=== PATIENT | male | born 1980 | race Caucasian/White ===

== ENCOUNTER 2020-02-09 16:37 | Inpatient (IN) | payer MEDICARE, MEDICAID ==
[~2020-02-09] VITALS: Ht 213.4 cm; Wt 74.8 kg
[~2020-02-09 16:37] MED LIST: CELEXA40 MG; DICLOFENAC SOD50 M1 PO; FENTANYL PA50 MCG/HR TP; GABAPENTIN 100100 MG PO; HCTZ; IBUPROFEN 800800 M1; NEURONTIN600 MG PO; NORCO 5-325 TA1 EACH PO; NORVASC10 MG PO; PENICILLIN V P500 MG PO; PRILOSEC 10MG C10 M1; PRILOSEC 20 MG20 MG PO; SEROQUEL 50 MG50 M1 PO; SEROQUEL XR 30300 M1 PO; SEROQUEL200 MG; XANAX XR1 MG; ZOFRAN4 MG PO; [UNRECOGNIZED DRUG - OTHER]
[2020-02-09 16:43] VITALS: BP 131/111
[2020-02-09] MEDS ORDERED: DILAUDID1 MG/1 M1 PO (16:49)
[2020-02-09] MEDS ORDERED: CREON DR 36,001 EACH PO (16:50)
[2020-02-09] MEDS ORDERED: PRILOSEC OTC20 MG PO (16:50)
[2020-02-09 17:03] LABS: ABSOLUTE BASOPHILS 0.1 thou/uL (0.0-0.2); ABSOLUTE EOSINOPHILS 0.1 thou/uL (0.0-0.7); ABSOLUTE LYMPHOCYTES 3.2 thou/uL (0.8-5.3); ABSOLUTE MONOCYTES 0.6 thou/uL (0.0-1.2); ABSOLUTE NEUTROPHILS 6.3 thou/uL (1.6-8.1); BASOPHILS 0.8 %; EOSINOPHILS 1.4 %; HEMATOCRIT 46.2 % (42.0-52.0); HEMOGLOBIN 15.9 gm/dL (14.0-18.0); LYMPHOCYTES 30.9 %; MCHC 34.4 g/dL (28.0-37.0); MONOCYTES 6.1 %; MPV 6.5 fl. (7.2-11.1); NUCLEATED RBCS 0 /100WBC; PLATELET COUNT* 414 thou/uL (150-400); POLYS 60.8 %; RBC 5.13 mil/uL (4.50-6.00); RDW-CV 15.7 % (10.5-14.5); WBC 10.4 thou/uL (4.0-11.0)
[2020-02-09 17:12] LABS: CALCIUM 8.8 mg/dL (8.5-10.1); CREATININE 0.9 mg/dL (0.6-1.3); POTASSIUM 3.6 mmol/L (3.5-5.1)
[2020-02-09 17:17] LABS: ALBUMIN 3.5 g/dL (3.4-5.0); TOTAL BILIRUBIN 0.2 mg/dL (<0.1-1.0); TOTAL PROTEIN 8.7 g/dL (6.4-8.2)
[2020-02-09 18:07] LABS: % SATURATION 18 % (20-39); IRON 83 ug/dL (50-175)
[2020-02-09 21:10] VITALS: BP 146/105
[2020-02-09 21:22] VITALS: BP 143/102
[2020-02-09] MEDS ORDERED: DILAUDID 4 MG TA4 M1 PO (22:22)
[2020-02-10 07:25] VITALS: BP 116/75
[2020-02-10 16:00] VITALS: BP 129/97
[2020-02-10 19:52] VITALS: BP 126/89
[2020-02-11 05:14] LABS: HEMATOCRIT 38.1 % (42.0-52.0); MCH 30.8 pg (26.0-34.0); MCHC 33.9 g/dL (28.0-37.0); MCV 90.7 fL (80.0-100.0); MPV 6.5 fl. (7.2-11.1); RBC 4.2 mil/uL (4.50-6.00); RDW-CV 15.6 % (10.5-14.5); WBC 6.7 thou/uL (4.0-11.0)
[2020-02-11 05:17] LABS: HEMOGLOBIN 12.9 gm/dL (14.0-18.0)
[2020-02-11 05:25] LABS: CALCIUM 7.9 mg/dL (8.5-10.1); CREATININE 0.8 mg/dL (0.6-1.3); POTASSIUM 3.4 mmol/L (3.5-5.1)
[2020-02-11 05:27] LABS: URINE BILIRUBIN NEGATIVE (Negative); URINE BLOOD NEGATIVE (Negative); URINE CLARITY CLEAR; URINE COLOR YELLOW; URINE GLUCOSE-RANDOM NEGATIVE (Negative); URINE KETONES TRACE (Negative); URINE LEUKOCYTES-REFLEX NEGATIVE (Negative); URINE NITRITE-REFLEX NEGATIVE (Negative); URINE PROTEIN NEGATIVE (Negative); URINE UROBILINOGEN 0.2 E.U./dl (0.2-1.0)
[2020-02-11 05:53] LABS: AMP/METHAMP Negative (Negative); BARBITURATES Negative (Negative); BENZODIAZEPINES Negative (Negative); COCAINE Negative (Negative); METHADONE Negative (Negative); OPIATES POSITIVE (Negative); PCP Negative (Negative); THC POSITIVE (Negative)
[2020-02-11 07:10] VITALS: BP 125/89
[2020-02-11 09:23] VITALS: BP 125/89
[2020-02-11 14:15] VITALS: BP 125/89
== END 2020-02-11 14:16 | disposition home or self-care (01) | DRG 344 ==
LOC: M.ERS 16:37 → M.ORTHSURG 18:33 → M.TBA-ER 18:33 → M.ORTHSURG 21:03
PROVIDERS: Physician Assistant; Surgery; ADMIT Family Medicine; ATTEND Family Medicine
PROC: 0DWD3UZ Revision of Feeding Device in Lower Intestinal Tract, Percutaneous Approach (ICD-10-PCS; principal; 2020-02-10)
DX: K94.13 Enterostomy malfunction (principal); K85.90 Acute pancreatitis without necrosis or infection, unspecified; F11.20 Opioid dependence, uncomplicated; K86.2 Cyst of pancreas; K56.7 Ileus, unspecified; K86.1 Other chronic pancreatitis; F32.9 Major depressive disorder, single episode, unspecified; M19.90 Unspecified osteoarthritis, unspecified site; F41.9 Anxiety disorder, unspecified; M40.30 Flatback syndrome, site unspecified; K59.00 Constipation, unspecified; D47.3 Essential (hemorrhagic) thrombocythemia; D50.9 Iron deficiency anemia, unspecified; F12.90 Cannabis use, unspecified, uncomplicated; F17.210 Nicotine dependence, cigarettes, uncomplicated; K86.89 Other specified diseases of pancreas; Z20.828 Contact with and (suspected) exposure to other viral communicable diseases; G89.29 Other chronic pain; Y83.3 Surgical operation with formation of external stoma as the cause of abnormal reaction of the patient, or of later complication, without mention of misadventure at the time of the procedure; Z88.6 Allergy status to analgesic agent; Z88.5 Allergy status to narcotic agent; Z88.8 Allergy status to other drugs, medicaments and biological substances; I25.2 Old myocardial infarction; Z90.49 Acquired absence of other specified parts of digestive tract; Y92.89 Other specified places as the place of occurrence of the external cause